=== PATIENT | female | born 1985 | race African-American/Black ===

== ENCOUNTER 2016-07-14 19:50 | Emergency (ER) | payer OTHER ==
--- NOTE | ~2016-07-14 | CT2 ---
[facility] A Service of [facility] RADIOLOGY TEXT RESULTS PATIENT: KEON NUR LOCATION: [facility] : 89 UNIT #: [id number] AGE: [address]: Romie Tierney DO SEX: F ORDER DR: [id number] [place], [place] [address] [id number] E MR#: [id number] Acc #: [id number] NAME: KEON NUR : 1985 SEX: F STUDY DATE/TIME: 07/14/2016 22:31 UNIT: MENG ROOM: STUDY DESCRIPTION: CT Abd and Pelv W Cont Attending Physician: Romie Tierney D.O. Ordering Physician: Romie Tierney D.O. Primary Care Physician: Primary Care Physician No MEDICAL IMAGING REPORT This report is preliminary unless electronic signature is present EXAM CT abdomen and pelvis with contrast INDICATION Mid and upper abdominal pain, nausea and vomiting since 07/14/2016. PROCEDURE Contrast-enhanced CT abdomen and pelvis. This CT exam was performed with one or more of the following radiation dose reduction techniques: automatic exposure control, adjustment of mA and/or kV according to patient size, and iterative reconstruction. COMPARISON None FINDINGS ABDOMEN WITH CONTRAST: Included lung bases clear. Liver, spleen, kidneys, adrenal glands, pancreas and gallbladder are unremarkable. The bowel loops are nondilated. Appendix is partially seen and is nondilated. PELVIS WITHOUT CONTRAST: No pelvic mass or fluid. No aggressive appearing bone lesion. IMPRESSION No acute findings. Appendix is partially and visualized portions are nondilated. Dictated by... Bj Easley M.D. [facility] A Service of [facility] RADIOLOGY TEXT RESULTS PATIENT: KEON NUR LOCATION: [facility] : 89 UNIT #: [id number] AGE: [address]: Romie Tierney DO SEX: F ORDER DR: THIS IS AN ELECTRONICALLY VERIFIED REPORT Bj Easley M.D. at 07/15/2016 10:14 PM Mayi TD: 07/15/2016 08:53 JOB #: [id number] MEDICAL IMAGING REPORT Page 1 of 1 COPY
[~2016-07-14 19:50] MED LIST: PYRIDIUM PO
[2016-07-14 20:51] LABS: BASOPHIL# 0.1 X10e3 (0-0.3); BASOPHIL% 0.5 % (0-2.5); EOSINOPHIL% 0.1 % (0.0-7.0); HEMATOCRIT 43.8 % (35.0-45.0); HEMOGLOBIN 14.4 gm/dL (12.0-16.0); LYMPHOCYTE# 1.6 X10e3 (1.0-3.5); LYMPHOCYTE% 16.8 % (17.0-45.0); MEAN CELL VOLUME 89.6 FL (83-96); MEAN CORPUSCULAR HEMOGLOBIN 29.5 PG (28-34); MEAN CORPUSCULAR HGB CONC 32.9 g/dL (30-36); MEAN PLATELET VOLUME 8.3 FL (6.5-11.5); MONOCYTE# 0.7 X10e3 (0-1.0); NEUTROPHIL# 7.2 X10e3 (1.5-7.1); NEUTROPHIL% 75.6 % (40-75); PLATELET COUNT 322 X10e3 (140-420); RED BLOOD COUNT 4.89 X10e (3.90-5.30); RED CELL DISTRIBUTION WIDTH 12.9 % (11.0-15.5); WHITE BLOOD COUNT 9.5 X10e3 (4.0-10.5)
[2016-07-14 20:52] LABS: DIFF IND NO
[2016-07-14 21:14] LABS: ALBUMIN SERUM 4.8 g/dL (3.5-5.0); BILIRUBIN, DIRECT 0.1 mg/dL (0.0-0.2); BILIRUBIN,INDIRECT 0.9 mg/dL (0.0-0.9); BUN/CREATININE RATIO 17.14; CALCIUM SERUM 9.7 mg/dL (8.4-10.2); CREATININE SERUM 0.7 mg/dL (0.6-1.4); GLOM FILT RATE Estimated 136.7 mL/min (>60); POTASSIUM 3.7 mmol/L (3.5-5.1); PROTEIN TOTAL SERUM 8.1 g/dL (6.0-8.3)
[2016-07-14 21:31] LABS: URINE SOURCE CLEAN CATCH
[2016-07-14 21:39] LABS: URINE APPEARANCE CLEAR; URINE BILIRUBIN NEG (NEG); URINE BLOOD TRACE (NEG); URINE COLOR YELLOW; URINE GLUCOSE NEG (NEG); URINE KETONE 3+ (NEG); URINE LEUKOCYTE ESTERASE NEG (NEG); URINE NITRATE NEG (NEG); URINE PROTEIN 1+ (NEG); URINE SPECIFIC GRAVITY 1.029 (1.003-1.035)
[2016-07-14 21:41] LABS: CULTURE INDICATED? YES; URINE BACTERIA AUWI 1+ (NEGATIVE); URINE SQUAMOUS EPITHELIAL CELL MOD /[HPF]
== END 2016-07-15 00:25 | disposition home or self-care (01) ==
LOC: CED 19:50
DX: R10.9 Unspecified abdominal pain (principal); R11.2 Nausea with vomiting, unspecified; F17.200 Nicotine dependence, unspecified, uncomplicated
CPT/HCPCS: 36415; 74177; 80048; 80076; 81003; 83690; 84703; 85025; 87086; 96361; 96374; 96375; 99284; J1885; J2405; Q9967